=== PATIENT | female | born 1950 | race Caucasian/White ===

== ENCOUNTER 2020-06-04 18:32 | Emergency (ER) | payer MEDICARE, BC ==
[~2020-06-04] VITALS: Ht 157.5 cm; Wt 68.0 kg
[2020-06-04] MEDS ORDERED: INDERAL 40MG TA40 MG PO (19:25)
[2020-06-04] MEDS ORDERED: SYNTHROID75 MCG PO (19:26)
[2020-06-04] MEDS ORDERED: PRAVACHOL20 MG PO (19:26)
[2020-06-04] MEDS ORDERED: FOSAMAX PLUS PO (19:27)
[2020-06-04] MEDS ORDERED: IBUPROFEN600 MG PO (20:36)
[2020-06-04] MEDS ORDERED: ORPHENADRINE100 MG PO (20:36)
[2020-06-04 20:42] VITALS: BP 115/57
== END 2020-06-04 20:42 | disposition home or self-care (01) ==
LOC: ED 18:32
DX: S39.012A Strain of muscle, fascia and tendon of lower back, initial encounter (principal); W10.8XXA Fall (on) (from) other stairs and steps, initial encounter; Y92.833 Campsite as the place of occurrence of the external cause